=== PATIENT | female | born 1945 | race Two or more races ===

== ENCOUNTER 2024-10-09 07:58 | Outpatient (CLI) | payer OTHER ==
[2024-10-09 09:15] LABS: Hematocrit 41.4 % (36.0-46.0); Hemoglobin 13.8 g/dL (12.2-16.2); Mean Corpuscular Hemoglobin 29.8 pg (28.0-32.0); Mean Corpuscular Volume 89.6 fL (80.0-100.0); Nucleated Red Blood Cells % 0.0 %
[2024-10-09 09:19] LABS: Urine Protein, UAD Negative (Negative)
[2024-10-09 09:26] LABS: INR 1.01 (0.9-1.15); Partial Thromboplastin Time 25.1 SEC (24.5-34.5); Prothrombin Time 10.7 sec (9.3-11.8)
[2024-10-09 09:39] LABS: Albumin 4.4 g/dL (3.2-4.8)
[2024-10-09 09:40] LABS: Thyroid Stimulating Hormone 3.17 uIU/mL (0.55-4.78); Triglycerides 93.0 mg/dL (< 150)
[2024-10-09 09:41] LABS: Magnesium 2.1 mg/dL (1.6-2.6)
[2024-10-09 09:42] LABS: Cholesterol 143.0 mg/dL (< 200); HDL Cholesterol 44.0 mg/dL (40-59)
[2024-10-09 10:09] LABS: Microalb/Creat Ratio, Urine 79.0
[2024-10-09 10:30] LABS: Iron 68.0 ug/dL (50-170)
[2024-10-09 10:33] LABS: Total Iron Binding Capacity 352.0 ug/dL (250-425)
[2024-10-09 10:38] LABS: Free T3 2.58 pg/mL (2.3-4.2)
[2024-10-09 10:41] LABS: Free T4 (Free Thyroxine) 0.87 ng/dL (0.89-1.76)
[2024-10-09 10:46] LABS: Uric Acid 1.5 mg/dL (3.1-7.8)
== END 2024-10-09 17:00 | disposition home or self-care (01) ==
LOC: LAB 07:58
PROVIDERS: ATTEND Family Medicine
DX: G62.9 Polyneuropathy, unspecified (principal); Z00.00 Encounter for general adult medical examination without abnormal findings; Z76.89 Persons encountering health services in other specified circumstances; Z95.5 Presence of coronary angioplasty implant and graft
CPT/HCPCS: 36415; 80061; 81001; 82040; 82043; 82306; 82570; 82607; 83036; 83540; 83550; 83615; 83735; 84403; 84439; 84443; 84480; 84481; 84550; 85025; 85610; 85730